=== PATIENT | female | born 2000 | race Caucasian/White ===

== ENCOUNTER 2023-08-23 09:42 | Emergency (ER) | payer OTHER ==
[~2023-08-23] VITALS: Ht 172.7 cm; Wt 65.9 kg
[2023-08-23 09:46] VITALS: BP 108/71; PULSE 65; TEMP 98.1
[2023-08-23] MEDS ORDERED: ATARAX 25MG25 MG/TAB PO ×2 (10:51→11:25)
[2023-08-23] MEDS ORDERED: ZYRTEC 10MG10 MG PO ×2 (10:51→11:24)
[2023-08-24] MEDS ORDERED: AMOXICILLIN 8751 TAB PO (09:54)
== END 2023-08-23 11:05 | disposition home or self-care (01) ==
LOC: COL.ER 09:42
DX: H01.004 Unspecified blepharitis left upper eyelid (principal); Z28.310 Unvaccinated for COVID-19

== ENCOUNTER 2023-08-24 08:54 | Emergency (ER) | payer OTHER ==
[~2023-08-24] VITALS: Ht 172.7 cm; Wt 65.9 kg
[~2023-08-24 08:54] MED LIST: ATARAX 25MG25 MG/TAB PO; ZYRTEC 10MG10 MG PO
[2023-08-24 09:12] VITALS: BP 119/68; PULSE 62; TEMP 98.1
[2023-08-24] MEDS ORDERED: AMOXICILLIN 8751 TAB PO (09:54)
== END 2023-08-24 10:05 | disposition home or self-care (01) ==
LOC: COL.ER 08:54
DX: H00.034 Abscess of left upper eyelid (principal)